=== PATIENT | male | born 1990 | race Two or more races ===

== ENCOUNTER 2021-10-29 10:33 | Emergency (ER) | payer OTHER ==
[~2021-10-29] VITALS: Ht 177.8 cm; Wt 86.2 kg
== END 2021-10-29 12:44 | disposition home or self-care (01) ==
LOC: ER 10:33
DX: J02.8 Acute pharyngitis due to other specified organisms (principal); Z20.822 Contact with and (suspected) exposure to COVID-19

== ENCOUNTER → 2021-11-06 | Emergency (ER) | payer OTHER | END | disposition home or self-care (01) | LOC: ER 16:17 | DX: B35.3 Tinea pedis (principal) ==

== ENCOUNTER 2021-12-25 11:17 | Outpatient (CLI) | payer OTHER | END 2021-12-25 11:23 | disposition home or self-care (01) | LOC: LAB 11:17 | DX: R07.0 Pain in throat (principal); Z20.822 Contact with and (suspected) exposure to COVID-19; A49.3 Mycoplasma infection, unspecified site ==

== ENCOUNTER → 2022-01-06 10:46 | Outpatient (CLI) | payer OTHER | END | disposition home or self-care (01) | LOC: LAB 10:46 | DX: R07.0 Pain in throat (principal); J02.9 Acute pharyngitis, unspecified; R49.0 Dysphonia ==